=== PATIENT | female | born 1970 | race Caucasian/White ===

== ENCOUNTER 2016-03-06 15:55 | Emergency (ER) | END 2016-03-06 16:50 | disposition left against medical advice (07) | LOC: M ED 15:55 | DX: F99 Mental disorder, not otherwise specified (principal); Z53.20 Procedure and treatment not carried out because of patient's decision for unspecified reasons ==

== ENCOUNTER 2016-03-06 21:00 | Inpatient (IN) | payer SELFPAY ==
[~2016-03-06] VITALS: Ht 170.2 cm; Wt 81.1 kg
[2016-03-06 23:10] LABS: MEAN CORPUSCULAR HEMOGLOBIN 24.1 pg (27.0-33.0); MEAN CORPUSCULAR HGB CONC 31.8 g/dl (32.0-36.5); MEAN CORPUSCULAR VOLUME 75.9 fl (80.0-96.0); RED CELL DISTRIBUTION WIDTH 16.6 % (11.5-14.5); WHITE BLOOD COUNT 6.5 K/mm3 (4.0-10.0)
[2016-03-06] MEDS ORDERED: ACETAMINOPHEN 325 MG TAB As Ordered ONE (23:33)
[2016-03-06 23:42] LABS: ALBUMIN 3.5 GM/DL (3.2-5.2); ALBUMIN/GLOBULIN RATIO 1.21 (1.00-1.93); ALKALINE PHOSPHATASE 61 U/L (45-117); ALT/SGPT 15 U/L (12-78); ANION GAP 9 MEQ/L (8-16); AST/SGOT 16 U/L (15-37); BILIRUBIN,DIRECT < 0.1 MG/DL (0.0-0.2); BILIRUBIN,TOTAL 0.4 MG/DL (0.2-1.0); BLOOD UREA NITROGEN 8 MG/DL (7-18); CALCIUM LEVEL 8.2 MG/DL (8.5-10.1); CARBON DIOXIDE LEVEL 25 MEQ/L (21-32); CHLORIDE LEVEL 108 MEQ/L (98-107); CREATININE FOR GFR 0.72 MG/DL (0.55-1.02); GLOMERULAR FILTRATION RATE > 60.0 (>58); GLUCOSE, FASTING 81 MG/DL (70-105); POTASSIUM SERUM 3.7 MEQ/L (3.5-5.1); SODIUM LEVEL 142 MEQ/L (136-145); TOTAL PROTEIN 6.4 GM/DL (6.4-8.2)
[2016-03-07 00:10] LABS: AMPHETAMINES LEVEL URINE NEGATIVE (NEGATIVE); BENZODIAZEPINES URINE NEGATIVE (NEGATIVE); COCAINE METABOLITE URINE NEGATIVE (NEGATIVE); CONTROL LINE INT CTR LINE PRESENT; METHADONE URINE NEGATIVE (NEGATIVE); OPIATES URINE NEGATIVE (NEGATIVE); TRICYCLIC ANTIDEPRESS URINE NEGATIVE (NEGATIVE)
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
--- NOTE | 2016-03-07 01:25 | EDDOCDS ---
Physician Documentation [facility] Name: Yris Johnson Age: 45 yrs Sex: Female : 1970 Arrival Date: 03/06/2016 Time: 21:00 Bed BHU1 Private MD: NO PRIMARY PHYSICIAN, . Disposition: 03/07/16 00:26 Hospitalization ordered by Evaristo Ugalde for Inpatient Admission. Preliminary diagnosis is Suicidal ideations. - Bed requested for Admit. - Status is Inpatient Admission. slm - Condition is Stable. - Problem is an ongoing problem. - Symptoms are unchanged. Historical: - Allergies: No known drug Allergies; - Home Meds: 1. none - PMHx: Anemia; GERD; gallstones; - PSHx: endoscopy; - Social history: Smoking status: Patient states was never smoker of tobacco. Patient/guardian denies using alcohol, street drugs, IV drugs, caffeine, No barriers to communication noted, The patient speaks fluent Yi, Speaks appropriately for age, Patient has loose association with wording. Patient noted to have labile mood, flat affect. Patient has poor memory. . - Family history: Not pertinent. - : The pt / caregiver states he / she is not on anticoagulants. Home medication list is obtained from the patient. - Exposure Risk Screening:: None identified. 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 7 in. elp (170.18 cm) (R); Pain 8/10; 03/07 01:17 BP 114 / 61; Pulse 63; Resp 16; Pulse Ox 98% on R/A; slm 01:18 Pain 0/10; slm MDM: 03/06 22:39 Consult PFS/PSA/Baseball Player ordered. mm11 22:39 Consult PFS/PSA/Baseball Player: Patient's case requires discussion with on-call mm11 Psychiatrist ordered. 22:39 PSA/PFS to call Nursing Business Solution Analyst, to enter patient data on [place] Safe Act if patient mm11 involuntarily admitted or transferred for SI or HI ordered. 22:39 Confirm accurate psychiatric medication list and times of last dosage ordered. mm11 22:39 Detain Pt Until Medically/PFS Cleared ordered. mm11 22:40 Acetaminophen Level Ordered. EDMS 22:40 Basic Metabolic Profile Ordered. EDMS 22:40 Complete Blood Count Ordered. EDMS 22:40 Drug Eval Toxicology ED Only Ordered. EDMS 22:40 Ethyl Alcohol (ethanol) Ordered. EDMS 22:40 Liver Profile Ordered. EDMS 22:40 Salicylate Level Ordered. EDMS 22:40 Thyroid Stimulating Hormone Ordered. EDMS 23:32 Acetaminophen Tablet 650 mg PO once ordered. mm11 03/07 00:24 Acetaminophen Level Reviewed. mm11 00:24 Basic Metabolic Profile Reviewed. mm11 00:24 Complete Blood Count Reviewed. mm11 00:24 Salicylate Level Reviewed. mm11 00:24 Drug Eval Toxicology ED Only Reviewed. mm11 00:24 Ethyl Alcohol (ethanol) Reviewed. mm11 00:24 Liver Profile Reviewed. mm11 00:24 Thyroid Stimulating Hormone Reviewed. mm11 00:29 Admit to [facility]: ordered. EDMS 00:36 [facility] Legal paperwork was scanned into [employer] and attached to record. cs 00:40 Consult PFS/PSA/Baseball Player complete. sl 00:40 Consult PFS/PSA/Baseball Player: Patient's case requires discussion with on-call [facility] Psychiatrist complete. 01:01 [facility] Legal paperwork was scanned into [employer] and attached to record. cs 01:03 PSA/PFS to call Nursing Business Solution Analyst, to enter patient data on [place] Safe Act if patient cl involuntarily admitted or transferred for SI or HI complete. 01:06 Financial registration complete. [facility] 01:19 [facility] Legal paperwork was scanned into [employer] and attached to record. cl Administered Medications: 03/06 23:41 Drug: Acetaminophen 650 mg [acetaminophen 325 mg tablet (2 tabs)] Route: PO; slm 03/07 01:18 Follow up: Pain 0/10 Adult [facility] Signatures: Dispatcher [employer] EDMS Jose Barcenas, RENNY PSA cl Chaitanya Hector, PSA PSA cs Armin Keith DO DO mm11 Damien Gipson,RN RN Dorina Ortiz LPN LPN [facility] Audrey Chiang [facility] MTDD
[2016-03-07 01:35] VITALS: BP 96/57
[2016-03-07] MEDS ORDERED: traZODone 50 MG TAB PO PRN (04:00)
[2016-03-07] MEDS ORDERED: ACETAMINOPHEN TAB 650MG DOSE (2X325MG) PO PRN (04:00)
[2016-03-07] MEDS ORDERED: MAALOX 30 ML SUSP *UDC PO PRN (04:00)
[2016-03-07] MEDS ORDERED: MOM 30ML SUSPENSION UDC PO PRN (04:00)
[2016-03-07 06:51] VITALS: BP 110/64
--- NOTE | 2016-03-07 12:53 | HPEPDOC ---
Medical History and Physical Date of Admission Mar 07, 2016 at 01:35 History and Physical PCP: None ATTENDING: Dr. Tanvir Cox HPI: 45yoF admitted to [facility] for depressive disorder unspecified, being medically examined today. Patient declines to dissipate with exam however has no specific concerns noted. History is taken from the chart. PMHx: Anemia GERD PSHX: EGD SOCHX: Resides in: [place], homeless Marital Status: Single Kids: None Employment: Unknown. Tobacco use: Denies ETOH: Denies Illicit Drugs: Denies IV Drug Use: Denies Tattoos done unprofessionally: Denies FAMHX: Unknown ROS: Patient declines to provide history. PE: Patient declines exam. EKG: pending. A&P: 45yoF admitted to [facility] for depressive disorder unspecified 1. Psych. Plan per Psychiatry. Obtain baseline EKG to assure the safety of psychiatric medications as they can prolong the QT interval. 2. Anemia. Check iron studies, B12, folate. Recheck CBC in a.m. 3. Follow up. No Primary Care Provider. Will attempt to establish PCP on discharge. 4. Staff member present during interaction, Andie MCBRIDE. Vital Signs Vital Signs Label Value Date Time Patient Temperature 97.5 degrees F 03/07/16134 Pulse 67 03/07/16 013 Respiratory Rate 16 bpm 03/07/16 0135 Blood Pressure Assessment 96/57 (70) 03/07/16 0135 Blood Pressure Assessment 110/64 (79) 03/07/16 0651 Laboratory Data Labs 24H Laboratory Tests 2 03/06/16 22:56: Acetaminophen Level 2.1L, Aspartate Amino Transf (AST/SGOT) 16, Alanine Aminotransferase (ALT/SGPT) 15, Alkaline Phosphatase 61, Total Bilirubin 0.4, Direct Bilirubin < 0.1, Albumin 3.5, Albumin/Globulin Ratio 1.21, Anion Gap 9, Calcium Level 8.2L, Ethyl Alcohol Level < 0.003, Glomerular Filtration Rate > 60.0, Salicylates Level < 1.7L, Thyroid Stimulating Hormone (TSH) 0.711, Total Protein 6.4, Urine Amphetamine Level NEGATIVE, Urine Benzodiazepines Screen NEGATIVE, Urine Cannabinoids NEGATIVE, Urine Cocaine Metabolite NEGATIVE, Urine Opiates Screen NEGATIVE, Urine Barbiturates, Qualitative NEGATIVE, Urine Methadone Screen NEGATIVE, Urine Tricyclic Antidepressants NEGATIVE CBC/BMP Laboratory Tests 03/06/16 22:56 Red Blood Count 3.72 L, Mean Corpuscular Volume 75.9 L, Mean Corpuscular Hemoglobin 24.1 L, Mean Corpuscular Hemoglobin Concent 31.8 L, Red Cell Distribution Width 16.6 H Home Medications No Active Prescriptions or Reported Meds Allergies Coded Allergies: No Known Allergies (Unverified , 03/07/16) Jeaneth Heller Mar 07, 2016 12:53
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
--- NOTE | 2016-03-09 02:25 | EDDOCDS ---
Physician Documentation [facility] Name: Yris Johnson Age: 45 yrs Sex: Female : 1970 Arrival Date: 03/06/2016 Time: 21:00 Bed BHU1 Private MD: NO PRIMARY PHYSICIAN, . Disposition: 03/07/16 00:26 Hospitalization ordered by Evaristo Ugalde for Inpatient Admission. Preliminary diagnosis is Suicidal ideations. - Bed requested for Admit. - Status is Inpatient Admission. slm - Condition is Stable. - Problem is an ongoing problem. - Symptoms are unchanged. Historical: - Allergies: No known drug Allergies; - Home Meds: 1. none - PMHx: Anemia; GERD; gallstones; - PSHx: endoscopy; - Social history: Smoking status: Patient states was never smoker of tobacco. Patient/guardian denies using alcohol, street drugs, IV drugs, caffeine, No barriers to communication noted, The patient speaks fluent Irish, Speaks appropriately for age, Patient has loose association with wording. Patient noted to have labile mood, flat affect. Patient has poor memory. . - Family history: Not pertinent. - : The pt / caregiver states he / she is not on anticoagulants. Home medication list is obtained from the patient. - Exposure Risk Screening:: None identified. 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 7 in. elp (170.18 cm) (R); Pain 8/10; 03/07 01:17 BP 114 / 61; Pulse 63; Resp 16; Pulse Ox 98% on R/A; slm 01:18 Pain 0/10; slm MDM: 03/06 22:39 Consult PFS/PSA/Haulage Boss ordered. mm11 22:39 Consult PFS/PSA/Haulage Boss: Patient's case requires discussion with on-call mm11 Psychiatrist ordered. 22:39 PSA/PFS to call Nursing Med Dir, to enter patient data on [place] Safe [place] if patient mm11 involuntarily admitted or transferred for SI or HI ordered. 22:39 Confirm accurate psychiatric medication list and times of last dosage ordered. mm11 22:39 Detain Pt Until Medically/PFS Cleared ordered. mm11 22:40 Acetaminophen Level Ordered. EDMS 22:40 Basic Metabolic Profile Ordered. EDMS 22:40 Complete Blood Count Ordered. EDMS 22:40 Drug Eval Toxicology ED Only Ordered. EDMS 22:40 Ethyl Alcohol (ethanol) Ordered. EDMS 22:40 Liver Profile Ordered. EDMS 22:40 Salicylate Level Ordered. EDMS 22:40 Thyroid Stimulating Hormone Ordered. EDMS 23:32 Acetaminophen Tablet 650 mg PO once ordered. mm11 03/07 00:24 Acetaminophen Level Reviewed. mm11 00:24 Basic Metabolic Profile Reviewed. mm11 00:24 Complete Blood Count Reviewed. mm11 00:24 Salicylate Level Reviewed. mm11 00:24 Drug Eval Toxicology ED Only Reviewed. mm11 00:24 Ethyl Alcohol (ethanol) Reviewed. mm11 00:24 Liver Profile Reviewed. mm11 00:24 Thyroid Stimulating Hormone Reviewed. mm11 00:29 Admit to [facility]: ordered. EDMS 00:36 M[facility] Legal paperwork was scanned into [employer] and attached to record. cs 00:40 Consult PFS/PSA/Haulage Boss complete. sl 00:40 Consult PFS/PSA/Haulage Boss: Patient's case requires discussion with on-call [facility] Psychiatrist complete. 01:01 M[facility] Legal paperwork was scanned into [employer] and attached to record. cs 01:03 PSA/PFS to call Nursing Med Dir, to enter patient data on [place] Safe Act if patient cl involuntarily admitted or transferred for SI or HI complete. 01:06 Financial registration complete. [facility] 01:19 MHE Legal paperwork was scanned into [employer] and attached to record. cl 01:49 [facility] Payment Agreement was scanned into [employer] and attached to record. [facility] 12:50 T-Sheet-- Draft Copy was scanned into [employer] and attached to record. gb Administered Medications: 03/06 23:41 Drug: Acetaminophen 650 mg [acetaminophen 325 mg tablet (2 tabs)] Route: PO; slm 03/07 01:18 Follow up: Pain 0/10 Adult m Signatures: Dispatcher [employer] EDMS Jose Barcenas, RENNY PSA cl Chaitanya Hector, PSA PSA cs Estela Granados, Reg Reg gb Armin Keith, DO mm11 Damien Gipson,RAE Dorina Villalobos,HOME HEALTH SPECIALIST HOME HEALTH SPECIALIST Audrey Ascencio The chart was reviewed and I authenticate all verbal orders and agree with the evaluation and treatment provided.Attachments: 01:49 [facility] Payment Agreement [facility] 12:50 T-Sheet-- Draft Copy gb Chart Complete MTDD
--- NOTE | 2016-03-09 02:25 | EDDOCDS ---
Physician Documentation [facility] Name: Yris Johnson Age: 45 yrs Sex: Female : 1970 Arrival Date: 03/06/2016 Time: 21:00 Bed BHU1 Private MD: NO PRIMARY PHYSICIAN, . Disposition: 03/07/16 00:26 Hospitalization ordered by Evaristo Ugalde for Inpatient Admission. Preliminary diagnosis is Suicidal ideations. - Bed requested for Admit. - Status is Inpatient Admission. slm - Condition is Stable. - Problem is an ongoing problem. - Symptoms are unchanged. Historical: - Allergies: No known drug Allergies; - Home Meds: 1. none - PMHx: Anemia; GERD; gallstones; - PSHx: endoscopy; - Social history: Smoking status: Patient states was never smoker of tobacco. Patient/guardian denies using alcohol, street drugs, IV drugs, caffeine, No barriers to communication noted, The patient speaks fluent Belarusian, Speaks appropriately for age, Patient has loose association with wording. Patient noted to have labile mood, flat affect. Patient has poor memory. . - Family history: Not pertinent. - : The pt / caregiver states he / she is not on anticoagulants. Home medication list is obtained from the patient. - Exposure Risk Screening:: None identified. 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 7 in. elp (170.18 cm) (R); Pain 8/10; 03/07 01:17 BP 114 / 61; Pulse 63; Resp 16; Pulse Ox 98% on R/A; slm 01:18 Pain 0/10; slm MDM: 03/06 22:39 Consult PFS/PSA/Plate Cutter ordered. mm11 22:39 Consult PFS/PSA/Plate Cutter: Patient's case requires discussion with on-call mm11 Psychiatrist ordered. 22:39 PSA/PFS to call Nursing Best Worker, to enter [place] data [place] if patient mm11 involuntarily admitted or transferred for SI or HI ordered. 22:39 Confirm accurate psychiatric medication list and times of last dosage ordered. mm11 22:39 Detain Pt Until Medically/PFS Cleared ordered. mm11 22:40 Acetaminophen Level Ordered. EDMS 22:40 Basic Metabolic Profile Ordered. EDMS 22:40 Complete Blood Count Ordered. EDMS 22:40 Drug Eval Toxicology ED Only Ordered. EDMS 22:40 Ethyl Alcohol (ethanol) Ordered. EDMS 22:40 Liver Profile Ordered. EDMS 22:40 Salicylate Level Ordered. EDMS 22:40 Thyroid Stimulating Hormone Ordered. EDMS 23:32 Acetaminophen Tablet 650 mg PO once ordered. mm11 03/07 00:24 Acetaminophen Level Reviewed. mm11 00:24 Basic Metabolic Profile Reviewed. mm11 00:24 Complete Blood Count Reviewed. mm11 00:24 Salicylate Level Reviewed. mm11 00:24 Drug Eval Toxicology ED Only Reviewed. mm11 00:24 Ethyl Alcohol (ethanol) Reviewed. mm11 00:24 Liver Profile Reviewed. mm11 00:24 Thyroid Stimulating Hormone Reviewed. mm11 00:29 Admit to [facility]: ordered. EDMS 00:36 M[facility] Legal paperwork was scanned into [employer] and attached to record. cs 00:40 Consult PFS/PSA/Plate Cutter complete. sl 00:40 Consult PFS/PSA/Plate Cutter: Patient's case requires discussion with on-call [facility] Psychiatrist complete. 01:01 [facility] Legal paperwork was scanned into [employer] and attached to record. cs 01:03 PSA/PFS to call Nursing Best Worker, to enter patient data on [place] Safe [place] if patient cl involuntarily admitted or transferred for SI or HI complete. 01:06 Financial registration complete. [facility] 01:19 MHE Legal paperwork was scanned into [employer] and attached to record. cl 01:49 [facility] Payment Agreement was scanned into [employer] and attached to record. [facility] 12:50 T-Sheet-- Draft Copy was scanned into [employer] and attached to record. gb Administered Medications: 03/06 23:41 Drug: Acetaminophen 650 mg [acetaminophen 325 mg tablet (2 tabs)] Route: PO; slm 03/07 01:18 Follow up: Pain 0/10 Adult m Signatures: Dispatcher [employer] EDMS Jose Barcenas, RENNY PSA cl Chaitanya Hector, PSA PSA cs Estela Granados, Reg Reg gb Armin Keith, DO mm11 Damien Gipson,RAE Dorina Villalobos,COSMETOLOGY EDUCATOR COSMETOLOGY EDUCATOR Audrey Ascencio The chart was reviewed and I authenticate all verbal orders and agree with the evaluation and treatment provided.Attachments: 01:49 [facility] Payment Agreement [facility] 12:50 T-Sheet-- Draft Copy gb Chart Complete MTDD
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
== END 2016-03-07 13:37 | disposition home or self-care (01) | DRG 755 ==
LOC: M ED 21:00 → M PSY 03-07 01:35
PROVIDERS: ADMIT Psychiatry & Neurology Psychiatry; ATTEND Psychiatry & Neurology Psychiatry
DX: F43.23 Adjustment disorder with mixed anxiety and depressed mood (principal); K21.9 Gastro-esophageal reflux disease without esophagitis; D64.9 Anemia, unspecified